=== PATIENT | female | born 1955 | race Two or more races ===

== ENCOUNTER 2016-06-01 13:36 | Emergency (ER) | payer OTHER ==
[~2016-06-01] VITALS: Ht 149.9 cm; Wt 73.5 kg
[~2016-06-01 13:36] MED LIST: ACETAMINOPHEN-1 EAC1 PO; ACETAMINOPHEN650 M2 PO; ADVAIR 250-501 EACH IH; ADVAIR 250/501 DISK IH; ADVAIR 500/501 DISK IH; ALBUTEROL SULF8.5 GM IH; ALBUTEROL2.5 MG/3 M IH; ALLERGY RELIEF10 M1 PO; ALPRAZOLAM0.5 MG PO; AMBIEN5 MG PO; ASCORBIC ACID500 M3 PO; ASPIRIN81 M1 PO; AZITHROMYCIN250 MG PO; AZITHROMYCIN250 MG1 PO; Advair 250/50 Diskus IH; BAYER ASPIRIN PO; BENTYL10 MG PO; BENTYL20 MG PO; BENZONATATE200 MG PO; C-10001000 MG PO; CALCIUM 500 +1 EACH PO; CEFTIN500 MG PO; CHERATUSSIN AC473 ML PO; CIPRO500 MG PO; COMBIVENT INH14.7 GM IH; CRESTOR10 MG PO; CYCLOBENZAPRINE10 MG PO; DELTASONE20 MG PO; DELZICOL400 MG PO; DICYCLOMINE HCL20 MG PO; DULERA 100 MCG/13 GM IH; DULERA 200 MCG/13 GM IH; FEOSOL325 MG PO; FISH OIL 1,2001 EAC3 PO; FISH OIL SOFTG1 EAC1 PO; FISH OIL SOFTG1 EACH; FISH OIL300 MG PO; FLEXERIL10 MG PO; FLONASE16 GM NS; FLUTICASONE PRO16 GM BOTH NARES; FLUTICASONE PROPIONA NS; FOLIC ACID1 MG PO; HYDROCORTISON28.4 G1 TP; HYZAAR 100-21 TABLET PO; IPRATROPIU0.2 MG/1 M IH; IRON PO; IRON55 MG PO; LEVAQUIN500 MG PO; LEVAQUIN750 MG PO; LEVOCETIRIZINE D5 MG PO; LEXAPRO10 MG PO; LEXAPRO20 MG PO; LORATADINE10 M2 PO; LOSARTAN POTAS100 MG PO; LOW DOSE ASPIRI81 M1 PO; MONTELUKAST SOD10 MG PO; MULTIVITAMINS1 EAC2 PO; Medrol Dosepak PO; NAPROSYN500 MG PO; NEXIUM40 MG PO; OS-CAL 500+D C1 EACH PO; OS-CAL 500+D T1 EACH PO; OYST-CAL D, OS500 MG PO; Omnicef PO; Oyst-Cal D, Oscal W/ PO; PEPCID20 MG PO; PERCOCET 5/31 TABLET PO; PHENERGAN-CODE120 ML PO; PREDNISONE10 MG PO; PREDNISONE20 M1 PO; PREDNISONE20 MG PO; PREDNISONE50 MG PO; PROCTOSOL-HC28.35 GM RC; PROVENTIL,2.5 MG/3 M IH; PYRIDOXINE,VIT100 MG PO; Proventil,Ventolin H IH; Pyridoxine,Vitamin B PO; RANITIDINE HCL150 MG PO; ROBITUSSIN AC,T10 ML PO; SINGULAIR10 MG PO; SPIRIVA1 INHALATI IH; Singulair PO; THERAGRAN1 TABLET PO; ULTRAM50 MG PO; VALIUM5 MG PO; VIBRAMYCIN100 MG PO; VITAMIN B-6100 MG PO; VITAMIN B-650 MG PO; VITAMIN C1000 M3 PO; VITAMIN D1000 INTUN PO; VITAMIN D31000 UNIT PO; WELLBUTRIN XL150 MG PO; WOMEN 50 + VIT1 EACH PO; XANAX0.5 MG PO; XOPENEX HF200 INHALA IH; XOPENEX HFA15 GM IH; XOPENEX1.25 MG/0. IH; Xopenex HFA Inhaler IH; Xopenex IH; ZANTAC150 MG PO; ZESTORETIC 20-1 EAC1 PO; ZESTORETIC,P1 TABLE2 PO; ZITHROMAX250 MG PO; ZOFRAN4 MG PO; ZOFRAN8 MG PO; ZOLPIDEM TARTRAT5 MG PO; Zestoretic,Prinzide PO; [UNRECOGNIZED DRUG - OTHER] PO; predniSONE PO
[2016-06-01 15:19] LABS: INFLUENZA A VIRAL ANTIGEN NEGATIVE; INFLUENZA B VIRAL ANTIGEN NEGATIVE
[2016-06-01] MEDS ORDERED: TESSALON PERLE100 MG PO (15:25)
[2016-06-01] MEDS ORDERED: NYSTATIN100000 UN1 PO (15:25)
[2016-06-01] MEDS ORDERED: FLONASE16 G1 BOTH NARES (15:25)
[2016-06-01] MEDS ORDERED: MUCINEX1200 MG PO (15:35)
[2016-06-01 15:48] VITALS: BP 134/89
== END 2016-06-01 15:53 | disposition home or self-care (01) ==
LOC: EME 13:36
PROVIDERS: Physician Assistant
DX: J20.8 Acute bronchitis due to other specified organisms (principal); J32.9 Chronic sinusitis, unspecified; J04.0 Acute laryngitis; B37.0 Candidal stomatitis; B37.81 Candidal esophagitis; F17.200 Nicotine dependence, unspecified, uncomplicated; Z71.6 Tobacco abuse counseling; E78.5 Hyperlipidemia, unspecified; I10 Essential (primary) hypertension; Z88.1 Allergy status to other antibiotic agents; Z88.2 Allergy status to sulfonamides
CPT/HCPCS: 71020; 87502; 87651 90; 93005; 99281; 99285

== ENCOUNTER 2016-06-27 19:17 | Emergency (ER) | payer OTHER ==
[~2016-06-27] VITALS: Ht 149.9 cm; Wt 74.3 kg
[~2016-06-27 19:17] MED LIST changes: +FLONASE16 G1 BOTH NARES; +MUCINEX1200 MG PO; +NYSTATIN100000 UN1 PO; +TESSALON PERLE100 MG PO
[2016-06-27] MEDS ORDERED: MOBIC15 MG PO (20:25)
[2016-06-27 20:50] VITALS: BP 157/81
== END 2016-06-27 20:51 | disposition home or self-care (01) ==
LOC: EME 19:17 → EXP 19:17
DX: M65.311 Trigger thumb, right thumb (principal); I10 Essential (primary) hypertension; E78.5 Hyperlipidemia, unspecified; J44.9 Chronic obstructive pulmonary disease, unspecified; Z79.82 Long term (current) use of aspirin; F17.200 Nicotine dependence, unspecified, uncomplicated
CPT/HCPCS: 99281; 99283

== ENCOUNTER 2016-08-12 18:38 | Emergency (ER) | payer OTHER ==
[~2016-08-12] VITALS: Ht 121.9 cm; Wt 74.7 kg
[~2016-08-12 18:38] MED LIST changes: +MOBIC15 MG PO
[2016-08-12 19:21] VITALS: BP 150/85
[2016-08-12] MEDS ORDERED: NAPROSYN500 MG PO (20:30)
== END 2016-08-12 21:21 | disposition home or self-care (01) ==
LOC: EME 18:38 → EXP 18:38
DX: S80.01XA Contusion of right knee, initial encounter (principal); W19.XXXA Unspecified fall, initial encounter; Y92.69 Other specified industrial and construction area as the place of occurrence of the external cause; Z88.1 Allergy status to other antibiotic agents; Z88.2 Allergy status to sulfonamides; Z88.5 Allergy status to narcotic agent; Z88.8 Allergy status to other drugs, medicaments and biological substances; F17.200 Nicotine dependence, unspecified, uncomplicated
CPT/HCPCS: 73502; 73564; 99281; 99283

== ENCOUNTER 2016-08-29 16:50 | Emergency (ER) | payer OTHER ==
[~2016-08-29] VITALS: Ht 149.9 cm; Wt 76.0 kg
[2016-08-29 18:34] LABS: HEMATOCRIT 37.5 % (36.0-46.0); MCH 31.8 PG (29.0-34.0); MCHC 33.9 G/DL (30.0-36.0); MEAN PLAT.VOLUME 10.4 uM^3 (9.5-12.4); PLATELET COUNT 277 K/uL (156-360); RBC DIS.WIDTH-SD 44.6 % (39-53); RED BLOOD COUNT 3.99 M/uL (3.80-5.20); WHITE BLOOD COUNT 10.5 K/uL (4.1-10.2)
[2016-08-29 18:44] LABS: CHLORIDE 107 mEq/L (99-109); SODIUM 141 mEq/L (136-147)
[2016-08-29 18:46] LABS: GLUCOSE 87 mg/dL (70-99)
[2016-08-29 18:47] LABS: ANION GAP 9 MEQ/L (2-14)
[2016-08-29 18:48] LABS: TOTAL BILIRUBIN 0.7 mg/dL (0.0-1.0)
[2016-08-29 18:50] LABS: ALKALINE PHOSPHATASE 89 IU/L (3-129); GFR ESTIMATE (CALCULATED) > 59 mL/min/
[2016-08-29 18:51] LABS: UREA NITROGEN (BUN) 13 mg/dL (9-23)
[2016-08-29 18:56] LABS: ADD MIUA? NO; BILIRUBIN NEGATIVE; BLOOD NEGATIVE; COLOR YELLOW ((YELLOW)); GLUCOSE (STRIP) NEGATIVE; KETONES NEGATIVE; LEUKOCYTES NEGATIVE; NITRITE NEGATIVE; PROTEIN (STRIP) NEGATIVE; SPECIFIC GRAVITY 1.005 (1.000-1.030); UCUL ADDED? NO; UROBILINOGEN 0.2 MG/DL (0.2-1.0)
[2016-08-29] MEDS ORDERED: PYRIDIUM200 MG PO (22:01)
[2016-08-29] MEDS ORDERED: FLEXERIL5 MG PO (22:01)
[2016-08-29 22:30] VITALS: BP 164/79
== END 2016-08-29 22:53 | disposition home or self-care (01) ==
LOC: EME 16:50
PROVIDERS: Nurse Practitioner Family
DX: R10.30 Lower abdominal pain, unspecified (principal); M54.5 Low back pain; R30.0 Dysuria; R35.0 Frequency of micturition; J44.9 Chronic obstructive pulmonary disease, unspecified; M79.7 Fibromyalgia; E78.5 Hyperlipidemia, unspecified; I10 Essential (primary) hypertension; K21.9 Gastro-esophageal reflux disease without esophagitis; Z79.82 Long term (current) use of aspirin; F17.200 Nicotine dependence, unspecified, uncomplicated
CPT/HCPCS: 74176; 80053; 81003; 85027; 99281; 99284

== ENCOUNTER 2016-10-31 16:39 | Emergency (ER) | payer OTHER ==
[~2016-10-31] VITALS: Ht 149.9 cm; Wt 72.7 kg
[~2016-10-31 16:39] MED LIST changes: +FLEXERIL5 MG PO; +PYRIDIUM200 MG PO
[2016-10-31] MEDS ORDERED: MEDROL DOSEPAK4 MG PO (17:57)
[2016-10-31] MEDS ORDERED: PERCOCET 5/31 TABLET PO (17:57)
[2016-10-31] MEDS ORDERED: VALIUM5 MG PO (17:57)
[2016-10-31 18:27] VITALS: BP 138/89
== END 2016-10-31 18:28 | disposition home or self-care (01) ==
LOC: EME 16:39
DX: M54.16 Radiculopathy, lumbar region (principal); Z98.1 Arthrodesis status; Z88.1 Allergy status to other antibiotic agents; Z88.2 Allergy status to sulfonamides
CPT/HCPCS: 99281; 99283; J1885; J7512

== ENCOUNTER 2017-02-21 13:51 | Emergency (ER) | payer OTHER ==
[~2017-02-21] VITALS: Ht 149.9 cm; Wt 73.0 kg
[~2017-02-21 13:51] MED LIST changes: +MEDROL DOSEPAK4 MG PO
[2017-02-21 14:34] LABS: HEMATOCRIT 37.3 % (36.0-46.0); MCH 31.7 PG (29.0-34.0); MCHC 33.5 G/DL (30.0-36.0); MCV 94.7 FL (83-99); PLATELET COUNT 246 K/uL (156-360); RBC DIS.WIDTH-CV 13.3 % (11.8-14.6); RBC DIS.WIDTH-SD 46.1 % (39-53); RED BLOOD COUNT 3.94 M/uL (3.80-5.20); WHITE BLOOD COUNT 10.6 K/uL (4.1-10.2)
[2017-02-21 14:43] LABS: CHLORIDE 105 mEq/L (99-109)
[2017-02-21 14:44] LABS: SODIUM 141 mEq/L (136-147)
[2017-02-21 14:45] LABS: GLUCOSE 83 mg/dL (70-99)
[2017-02-21 14:47] LABS: ANION GAP 11 MEQ/L (2-14)
[2017-02-21 14:49] LABS: GFR ESTIMATE (CALCULATED) > 59 mL/min/
[2017-02-21 14:50] LABS: UREA NITROGEN (BUN) 13 mg/dL (9-23)
[2017-02-21 14:54] LABS: TROP-I INTERPRETATION NEGATIVE; TROPONIN-I < 0.01 ng/mL (0.0-0.30)
[2017-02-21 17:05] LABS: TROP-I INTERPRETATION NEGATIVE; TROPONIN-I < 0.01 ng/mL (0.0-0.30)
[2017-02-21] MEDS ORDERED: MUCINEX600 MG PO (17:29)
[2017-02-21] MEDS ORDERED: TESSALON PERLE100 MG PO (17:29)
[2017-02-21] MEDS ORDERED: PREDNISONE20 MG PO (17:29)
[2017-02-21 17:58] VITALS: BP 123/80
== END 2017-02-21 17:59 | disposition home or self-care (01) ==
LOC: EME 13:51
PROVIDERS: Nurse Practitioner Family
DX: R07.89 Other chest pain (principal); J44.1 Chronic obstructive pulmonary disease with (acute) exacerbation; F17.210 Nicotine dependence, cigarettes, uncomplicated; I10 Essential (primary) hypertension; E78.5 Hyperlipidemia, unspecified; M79.7 Fibromyalgia; K21.9 Gastro-esophageal reflux disease without esophagitis; Z79.82 Long term (current) use of aspirin; Z88.1 Allergy status to other antibiotic agents
CPT/HCPCS: 71020; 80048; 84484; 85027; 85379; 93005; 94640; 99281; 99284

== ENCOUNTER 2017-04-14 16:52 | Emergency (ER) | payer OTHER ==
[~2017-04-14] VITALS: Ht 149.9 cm; Wt 74.3 kg
[~2017-04-14 16:52] MED LIST changes: +MUCINEX600 MG PO
[2017-04-14 17:30] LABS: HEMATOCRIT 38.7 % (36.0-46.0); MCH 31.5 PG (29.0-34.0); MCHC 34.1 G/DL (30.0-36.0); MCV 92.4 FL (83-99); MEAN PLAT.VOLUME 11.4 uM^3 (9.5-12.4); PLATELET COUNT 277 K/uL (156-360); RBC DIS.WIDTH-CV 13.3 % (11.8-14.6); RBC DIS.WIDTH-SD 45.1 % (39-53); RED BLOOD COUNT 4.19 M/uL (3.80-5.20); WHITE BLOOD COUNT 15.8 K/uL (4.1-10.2)
[2017-04-14 17:40] LABS: CHLORIDE 105 mEq/L (99-109); POTASSIUM 3.6 mEq/L (3.7-5.4); SODIUM 138 mEq/L (136-147)
[2017-04-14 17:42] LABS: GLUCOSE 87 mg/dL (70-99)
[2017-04-14 17:43] LABS: ANION GAP 10 MEQ/L (2-14)
[2017-04-14 17:44] LABS: TOTAL BILIRUBIN 0.5 mg/dL (0.0-1.0)
[2017-04-14 17:46] LABS: ALKALINE PHOSPHATASE 98 IU/L (3-129); GFR ESTIMATE (CALCULATED) > 59 mL/min/
[2017-04-14 17:47] LABS: UREA NITROGEN (BUN) 13 mg/dL (9-23)
[2017-04-14 17:49] LABS: LIPASE 29 U/L (1.0-51.0)
[2017-04-14 17:57] LABS: ADD MIUA? YES; BILIRUBIN NEGATIVE; BLOOD SMALL; COLOR YELLOW ((YELLOW)); GLUCOSE (STRIP) NEGATIVE; KETONES NEGATIVE; LEUKOCYTES TRACE; NITRITE NEGATIVE; PROTEIN (STRIP) NEGATIVE; SPECIFIC GRAVITY 1.017 (1.000-1.030); UROBILINOGEN 0.2 MG/DL (0.2-1.0)
[2017-04-14 18:04] LABS: BACTERIA RARE /HPF; EPITHELIAL CELLS 1+ /HPF; MUCUS TRACE /LPF; UCUL ADDED? NO; WHITE BLOOD CELLS 0-5 /HPF (0-5)
[2017-04-15 00:31] LABS: TROP-I INTERPRETATION NEGATIVE; TROPONIN-I < 0.01 ng/mL (0.0-0.30)
[2017-04-15 00:50] VITALS: BP 152/78
== END 2017-04-15 00:52 | disposition home or self-care (01) ==
LOC: EME 16:52
PROVIDERS: Nurse Practitioner Family; Physician Assistant
DX: R10.9 Unspecified abdominal pain (principal); R31.9 Hematuria, unspecified; M79.7 Fibromyalgia; K21.9 Gastro-esophageal reflux disease without esophagitis; J44.9 Chronic obstructive pulmonary disease, unspecified; I10 Essential (primary) hypertension; E78.5 Hyperlipidemia, unspecified; Z90.49 Acquired absence of other specified parts of digestive tract; F17.200 Nicotine dependence, unspecified, uncomplicated; Z88.5 Allergy status to narcotic agent; Z88.2 Allergy status to sulfonamides; Z88.0 Allergy status to penicillin; Z79.82 Long term (current) use of aspirin; Z88.8 Allergy status to other drugs, medicaments and biological substances
CPT/HCPCS: 71020; 74177; 80048; 80053; 81003; 83690; 83880; 84484; 85027; 87086; 93005; 99281; 99285; J1885; J2405; J7030

== ENCOUNTER 2017-05-16 19:44 | Emergency (ER) | payer OTHER ==
[~2017-05-16] VITALS: Ht 170.2 cm; Wt 73.8 kg
[2017-05-16 22:01] LABS: HEMATOCRIT 34.8 % (36.0-46.0); HEMOGLOBIN 11.9 G/DL (11.9-15.5); MCH 31.2 PG (29.0-34.0); MCHC 34.2 G/DL (30.0-36.0); MCV 91.1 FL (83-99); PLATELET COUNT 259 K/uL (156-360); RBC DIS.WIDTH-CV 13.8 % (11.8-14.6); RBC DIS.WIDTH-SD 46.5 % (39-53); RED BLOOD COUNT 3.82 M/uL (3.80-5.20); WHITE BLOOD COUNT 12.9 K/uL (4.1-10.2)
[2017-05-16 22:17] LABS: CHLORIDE 107 mEq/L (99-109); POTASSIUM 3.6 mEq/L (3.7-5.4); SODIUM 140 mEq/L (136-147)
[2017-05-16 22:18] LABS: GLUCOSE 94 mg/dL (70-99)
[2017-05-16 22:22] LABS: CREATININE 0.8 mg/dL (0.6-1.3); GFR ESTIMATE (CALCULATED) > 59 mL/min/
[2017-05-16 22:23] LABS: UREA NITROGEN (BUN) 17 mg/dL (9-23)
[2017-05-16] MEDS ORDERED: ROBITUSSIN AC,T10 ML PO (22:55)
[2017-05-16] MEDS ORDERED: DELTASONE20 M1 PO (22:55)
[2017-05-16] MEDS ORDERED: ZITHROMAX Z-PA250 MG PO (22:55)
[2017-05-16 23:17] VITALS: BP 131/66
== END 2017-05-16 23:24 | disposition home or self-care (01) ==
LOC: EME 19:44
PROVIDERS: Emergency Medicine
DX: J40 Bronchitis, not specified as acute or chronic (principal); I10 Essential (primary) hypertension; E78.5 Hyperlipidemia, unspecified; Z79.82 Long term (current) use of aspirin; Z88.2 Allergy status to sulfonamides; Z88.1 Allergy status to other antibiotic agents; F17.200 Nicotine dependence, unspecified, uncomplicated
CPT/HCPCS: 71046; 80048; 85027; 99281; 99284; J7512

== ENCOUNTER 2017-07-06 18:33 | Emergency (ER) | payer OTHER ==
[~2017-07-06] VITALS: Ht 149.9 cm; Wt 75.3 kg
[~2017-07-06 18:33] MED LIST changes: +DELTASONE20 M1 PO; +ZITHROMAX Z-PA250 MG PO
[2017-07-06 19:03] LABS: HEMATOCRIT 36.5 % (36.0-46.0); HEMOGLOBIN 12.8 G/DL (11.9-15.5); MCH 31.8 PG (29.0-34.0); MCHC 35.1 G/DL (30.0-36.0); MCV 90.8 FL (83-99); PLATELET COUNT 240 K/uL (156-360); RBC DIS.WIDTH-CV 14.2 % (11.8-14.6); RBC DIS.WIDTH-SD 47.2 % (39-53); RED BLOOD COUNT 4.02 M/uL (3.80-5.20); WHITE BLOOD COUNT 14.6 K/uL (4.1-10.2)
[2017-07-06 19:14] LABS: CHLORIDE 108 mEq/L (99-109); POTASSIUM 3.7 mEq/L (3.7-5.4); SODIUM 141 mEq/L (136-147)
[2017-07-06 19:15] LABS: GLUCOSE 103 mg/dL (70-99)
[2017-07-06 19:19] LABS: CREATININE 0.8 mg/dL (0.6-1.3); GFR ESTIMATE (CALCULATED) > 59 mL/min/
[2017-07-06 19:20] LABS: UREA NITROGEN (BUN) 15 mg/dL (9-23)
[2017-07-06] MEDS ORDERED: PREDNISONE10 M1 PO (19:39)
[2017-07-06] MEDS ORDERED: VENTOLIN HFA18 GM IH (20:01)
[2017-07-06 20:23] VITALS: BP 152/70
== END 2017-07-06 20:25 | disposition home or self-care (01) ==
LOC: EME 18:33
PROVIDERS: Emergency Medicine
DX: J44.1 Chronic obstructive pulmonary disease with (acute) exacerbation (principal); J06.9 Acute upper respiratory infection, unspecified; F17.200 Nicotine dependence, unspecified, uncomplicated; E78.5 Hyperlipidemia, unspecified; I10 Essential (primary) hypertension; K21.9 Gastro-esophageal reflux disease without esophagitis; Z79.82 Long term (current) use of aspirin; Z88.2 Allergy status to sulfonamides; Z88.0 Allergy status to penicillin; Z88.5 Allergy status to narcotic agent
CPT/HCPCS: 71046; 80048; 85027; 87502; 99281; 99284; J7512

== ENCOUNTER 2017-12-11 00:12 | Emergency (ER) | payer OTHER ==
[~2017-12-11] VITALS: Ht 149.9 cm; Wt 73.9 kg
[~2017-12-11 00:12] MED LIST changes: +PREDNISONE10 M1 PO; +VENTOLIN HFA18 GM IH
[2017-12-11 00:15] VITALS: BP 198/90
[2017-12-11] MEDS ORDERED: PERCOCET 5/31 TABLET PO (01:05)
[2017-12-11] MEDS ORDERED: AZITHROMYCIN250 MG1 PO (01:08)
== END 2017-12-11 02:37 | disposition home or self-care (01) ==
LOC: EME 00:12
DX: K02.9 Dental caries, unspecified (principal); Z88.5 Allergy status to narcotic agent; Z88.2 Allergy status to sulfonamides; Z88.0 Allergy status to penicillin
CPT/HCPCS: 99281; 99283